=== PATIENT | female | born 1995 | race Two or more races ===

== ENCOUNTER 2022-12-23 08:48 | Observation (INO) | payer MEDICAID | END 2022-12-23 10:51 | disposition home or self-care (01) | LOC: LDRP 08:48 → UNDOADMOB 08:48 → LDRP 09:59 | PROVIDERS: ADMIT Obstetrics & Gynecology; ATTEND Obstetrics & Gynecology | DX: O24.419 Gestational diabetes mellitus in pregnancy, unspecified control (principal); Z3A.37 37 weeks gestation of pregnancy | CPT/HCPCS: 59025; 76818; 81002; 82948; 82962; G0378 ==

== ENCOUNTER 2022-12-30 08:24 | Observation (INO) | payer MEDICAID ==
[2022-12-30] MEDS ORDERED: PREN-96 PO (10:01)
== END 2022-12-30 10:45 | disposition home or self-care (01) ==
LOC: LDRP 09:01 → UNDOADMOB 09:01 → LDRP 09:04
PROVIDERS: ADMIT Obstetrics & Gynecology; ATTEND Obstetrics & Gynecology
DX: O24.419 Gestational diabetes mellitus in pregnancy, unspecified control (principal); O26.893 Other specified pregnancy related conditions, third trimester; N89.8 Other specified noninflammatory disorders of vagina; Z3A.38 38 weeks gestation of pregnancy
CPT/HCPCS: 59025; 76818; 81002; 82948; 82962; 94760; G0378

== ENCOUNTER 2023-01-06 10:29 | Inpatient (IN) | payer MEDICAID ==
[~2023-01-06] VITALS: Ht 165.1 cm; Wt 82.1 kg
[~2023-01-06 10:29] MED LIST: PREN-96 PO
[2023-01-06] MEDS ORDERED: BUTORPHANOL TARTRATE 2 MG/1 ML VIAL IV PRN (12:45)
[2023-01-06] MEDS ORDERED: LIDOCAINE 2%HCL (LOCAL ANESTH.) INJ 20ML MDV IJ PRN (12:45)
[2023-01-06] MEDS ORDERED: PROMETHAZINE HCL 25 MG/ML 1ML IV PRN (12:45)
[2023-01-06] MEDS ORDERED: DERMOPLAST 60ML BOTTLE TOP PRN (12:45)
[2023-01-06] MEDS ORDERED: PHISODERM TOP SOLN 240ML BTL TOP PRN (12:45)
[2023-01-06] MEDS ORDERED: WITCH HAZEL-GLYCERIN PAD TOP PRN (12:45)
[2023-01-06 13:17] LABS: Basophils # (auto) 0 10 ^3/uL (0-0.2); Basophils % (auto) 0.3 % (0.0-2.0); Eosinophils # (auto) 0.1 10 ^3/uL (0-0.8); Eosinophils % (auto) 0.7 % (0.0-7.0); Hematocrit 32.6 % (36.0-46.0); Hemoglobin 11.1 g/dL (12.2-16.2); Lymphocytes # (auto) 1.8 10 ^3/uL (0.4-5.4); Lymphocytes % (auto) 17.1 % (10.0-50.0); Mean Corpuscular Hemoglobin 32.1 pg (28.0-32.0); Mean Corpuscular Hgb Conc. 34.2 g/dL (32.0-36.0); Mean Corpuscular Volume 93.7 fL (80.0-100.0); Monocytes # (auto) 0.6 10 ^3/uL (0-1.3); Neutrophils # (auto) 7.8 10 ^3/uL (1.6-8.6); Neutrophils % (auto) 75.9 % (37.0-80.0); Red Blood Cells 3.48 10^6/uL (4.0-5.20); Red Cell Distribution Width 14.3 % (11.8-14.3); White Blood Cell 10.3 10^3/uL (4.4-10.8)
[2023-01-06 13:37] LABS: INR 0.92 (0.9-1.15); Partial Thromboplastin Time 28.2 sec (24.6-33.4)
[2023-01-06 13:38] LABS: Albumin 2.5 g/dL (3.4-5.0); BUN/Creatinine Ratio 21.1 (10.0-20.0); Calcium 8.5 mg/dL (8.5-10.1); Potassium 3.6 mmol/L (3.5-5.1)
[2023-01-06 13:41] LABS: Bilirubin, Total 0.3 mg/dL (0.2-1.0); Total Protein 6.2 g/dL (6.4-8.2)
[2023-01-06] MEDS ORDERED: PENICILLIN G POT 5MIL/D5 50ML 50 ML IV ONE (14:15)
[2023-01-06] MEDS: LACTATED RINGER'S 1,000 ML IV SCH (14:23)
[2023-01-06] MEDS: miSOPROStol 50 MCG per PRE-CUT 1/2 TAB PO PRN ×4 (15:04→23:07)
[2023-01-06] MEDS ORDERED: CARBOPROST TROMETHAMINE 250 MCG/1ML VIAL IM PRN (16:30)
[2023-01-06] MEDS ORDERED: diphenhdrAMINE HCL 50 MG/1 ML VL IV PRN (16:30)
[2023-01-06] MEDS ORDERED: MINERAL OIL TOPICAL 10ml TOP PRN (16:30)
[2023-01-06] MEDS ORDERED: LACT. RINGERS/OXYTOCIN 20UNITS 500 ML IV ONE ×2 (16:30→17:00)
[2023-01-06] MEDS ORDERED: miSOPROStol 100 mcg TAB SL PRN (16:30)
[2023-01-06] MEDS ORDERED: METHYLERGONOVINE MALEATE 0.2 MG/ML AMP IM PRN (16:30)
[2023-01-06] MEDS ORDERED: TRANEXAMIC ACID 1,000 MG in SODIUM CHL 0.9% 100 ML IV PRN (16:30)
[2023-01-06] MEDS ORDERED: ONDANSETRON HCL 4 MG/2 ML VIAL IV PRN (16:30)
[2023-01-06] MEDS ORDERED: ACETAMINOPHEN 325 MG TAB PO PRN (16:30)
[2023-01-06] MEDS ORDERED: DIPHENOXYLATE W/ATROPINE 2.5 MG TAB PO SCH (18:00)
[2023-01-06] MEDS: PENICILLIN G POTASSIUM 2,500,000 UNITS in D5W 5% 50 ML IV SCH ×2 (18:38→22:31)
[2023-01-06 19:15] LABS: Urine Bacteria NONE SEEN /hpf (None Seen); Urine Blood Negative /uL (Negative); Urine WBC <1 /hpf (0 - 5)
[2023-01-06 19:31] LABS: Alcohol, Urine < 3.0 mg/dL (0-10); Amphetamine Screen, Urine NEGATIVE (NEGATIVE); Barbiturate Scree,Urine NEGATIVE (NEGATIVE); Benzodiazephine Screen, Urine NEGATIVE (NEGATIVE); Cannabinoid Screen, Urine NEGATIVE (NEGATIVE); Cocaine Screen, Urine NEGATIVE (NEGATIVE); Opiate Scree,Urine NEGATIVE (NEGATIVE); Phencyclidine Screen, Urine NEGATIVE (NEGATIVE)
[2023-01-07] MEDS: LACTATED RINGER'S 1,000 ML IV SCH ×4 (02:38→20:45)
[2023-01-07] MEDS ORDERED: LACT. RINGERS/OXYTOCIN 20UNITS 1,000 ML IV SCH ×2 (02:45→03:00)
[2023-01-07] MEDS: PENICILLIN G POTASSIUM 2,500,000 UNITS in D5W 5% 50 ML IV SCH ×3 (03:15→11:35)
[2023-01-07 07:06] LABS: RPR Non Reactive (Non Reactive)
[2023-01-07] MEDS ORDERED: LIDOCAINE HCL 2 %PF INJ 10ML AMP IJ ONE (07:30)
[2023-01-07] MEDS ORDERED: ePHEDrine SULFATE 50 MG/ML AMP IV ONE ×2 (07:30→08:15)
[2023-01-07] MEDS ORDERED: LACTATED RINGER'S 1,000 ML IV ONE (07:30)
[2023-01-07] MEDS ORDERED: fentaNYL CITRATE 100 MCG/2 ML VL IV ONE ×2 (07:30→08:15)
[2023-01-07] MEDS ORDERED: NALOXONE HCL 0.4 MG/ML VIAL IV ONE ×2 (07:30→08:15)
[2023-01-07] MEDS ORDERED: ROPIVACAINE HCL 200 ML EPI SCH ×2 (07:30→08:15)
[2023-01-07] MEDS ORDERED: METHYLERGONOVINE MALEATE 0.2 MG/ML AMP IM ONE (14:31)
[2023-01-07] MEDS ORDERED: miSOPROStol 100 mcg TAB ONE (14:36)
[2023-01-07] MEDS ORDERED: miSOPROStol 50 MCG per PRE-CUT 1/2 TAB SL PRN (14:45)
[2023-01-07] MEDS ORDERED: LACT. RINGERS/OXYTOCIN 20UNITS 500 ML IV ONE ×2 (16:15→16:45)
[2023-01-07] MEDS ORDERED: ONDANSETRON ODT 4 MG TAB PO PRN (16:15)
[2023-01-07] MEDS ORDERED: ACETAMINOPHEN 325 MG TAB PO PRN (16:15)
[2023-01-07] MEDS ORDERED: IBUPROFEN 600 MG TAB PO PRN (16:15)
[2023-01-07 19:00] VITALS: BP 114/58
[2023-01-07] MEDS ORDERED: ceFAZolin 1GM/50ML 50 ML IV SCH (22:00)
[2023-01-07] MEDS ORDERED: TETANUS-DIPTH-ACEL PERTUSSIS 0.5ML SYR Tdap IM ONE (22:15)
[2023-01-07] MEDS: DOCUSATE SOD 100 MG CAP PO SCH (22:26)
[2023-01-07 23:13] VITALS: BP 107/56
[2023-01-08] MEDS: ceFAZolin 1GM/50ML 50 ML IV SCH ×3 (00:31→18:12)
[2023-01-08 03:00] VITALS: BP 96/54
[2023-01-08] MEDS: LACTATED RINGER'S 1,000 ML IV SCH ×3 (04:45→20:45)
[2023-01-08 07:30] VITALS: BP 99/55
[2023-01-08] MEDS ORDERED: CEPH500C PO (08:54)
[2023-01-08 11:25] VITALS: BP 108/63
[2023-01-08 15:30] VITALS: BP 108/67
[2023-01-08 19:17] VITALS: BP 108/55
[2023-01-08] MEDS: DOCUSATE SOD 100 MG CAP PO SCH (22:00)
[2023-01-08 23:06] VITALS: BP 100/55
[2023-01-09] MEDS: ceFAZolin 1GM/50ML 50 ML IV SCH ×2 (01:15→08:51)
[2023-01-09 03:09] VITALS: BP 100/53
[2023-01-09] MEDS: LACTATED RINGER'S 1,000 ML IV SCH (04:45)
[2023-01-09 07:23] VITALS: BP 97/56
[2023-01-09 12:39] VITALS: BP 115/69
== END 2023-01-09 12:34 | disposition home or self-care (01) | DRG 560 ==
LOC: UNDOADMOB 10:29 → LDRP 10:29 → OBSVTOIN 12:42 → LDRP 14:06
PROVIDERS: ADMIT Obstetrics & Gynecology; ATTEND Obstetrics & Gynecology
PROC: 10E0XZZ Delivery of Products of Conception, External Approach (ICD-10-PCS; principal; 2023-01-07)
PROC: 3E0R3BZ Introduction of Anesthetic Agent into Spinal Canal, Percutaneous Approach (ICD-10-PCS; 2023-01-07)
PROC: 00HU33Z Insertion of Infusion Device into Spinal Canal, Percutaneous Approach (ICD-10-PCS; 2023-01-07)
PROC: 3E0DXGC Introduction of Other Therapeutic Substance into Mouth and Pharynx, External Approach (ICD-10-PCS; 2023-01-07)
PROC: 0HQ9XZZ Repair Perineum Skin, External Approach (ICD-10-PCS; 2023-01-07)
DX: O24.420 Gestational diabetes mellitus in childbirth, diet controlled (principal); Z37.0 Single live birth; O70.9 Perineal laceration during delivery, unspecified; O99.824 Streptococcus B carrier state complicating childbirth; Z3A.39 39 weeks gestation of pregnancy
CPT/HCPCS: 36415; 59025; 59409; 62282; 76818; 80053; 80307; 81001; 81002; 82948; 82962; 84112; 85025; 85610; 85730; 86592; 86850; 86900; 86901; 90715; 94760; 94762; 96360; 96361; 96365; 96366; 96372; G0378; J0690; J2405; J2540; J2590; J7060